=== PATIENT | female | born 1985 | race Caucasian/White ===

== ENCOUNTER → 2017-01-17 | Outpatient (CLI) | payer BC, OTHER | LOC: MW.CHOBGYN 15:18 | PROVIDERS: ATTEND Obstetrics & Gynecology | DX: Z34.90 Encounter for supervision of normal pregnancy, unspecified, unspecified trimester (principal) | CPT/HCPCS: 81003 ==

== ENCOUNTER → 2017-02-28 | Outpatient (CLI) | payer BC, OTHER ==
--- NOTE | 2017-03-02 10:21 | US ---
EXAM DATE: 02/28/17 PATIENT'S AGE: 31 Patient: FORD POWELL Facility: [place], [place] Site . Site : 1985 Study: US OB Pelvis [id number] 4:31:45 PM Ordering Physician: Genna Morrissey Final Report: INDICATION: survey. TECHNIQUE: Conventional transabdominal two-dimensional grayscale ultrasound examination. COMPARISON: None. FINDINGS: There is a living fetus with gestational age of 21 weeks by LMP and 20 weeks 5 days by today`s measurements. EDC based on LMP is 07/11/2017. BPD: 4.8 cm, 20 weeks 4 days Head circumference: 18.2 cm, 20 weeks 4 days Abdominal circumference: 16.1 cm, 21 weeks 2 days Femur length: 3.5 cm, 20 weeks 6 days The weight is estimated at 391 grams, the 43rd percentile. The heart rate is measured at 140 beats per minute and the rhythm appears regular. The head and spine are grossly intact. No gross facial abnormality is evident. The upper lip is intact. Four cardiac chambers are demonstrated. The heart and stomach appear to be on the same side. The diaphragm is intact. Two kidneys and a bladder are demonstrated. The cord insertion is normal and 3 cord vessels are noted. Four extremities are demonstrated. The amniotic fluid volume is within normal limits with TACHO of 18 cm. The placenta is posterior with no evidence of previa. The cervical length is normal at 4.4 cm. IMPRESSION: 1. Living fetus with gestational age of 21 weeks by LMP and 20 weeks 5 days by today`s measurements. EDC based on LMP is 07/11/2017. 2. No anomaly evident. Dictated by Jefferson Restrepo MD @ Mar 02 2017 7:46AM (Electronic Signature) Report Signed by Proxy and Original Signed Document filed in the Medical Record. [facility]
== END | disposition home or self-care (01) ==
LOC: MW.US 13:37
PROVIDERS: ATTEND Obstetrics & Gynecology
DX: Z36 Encounter for antenatal screening of mother (principal)
CPT/HCPCS: 76805; 76805-26

== ENCOUNTER → 2017-03-14 | Outpatient (CLI) | payer BC, OTHER | LOC: MW.CHOBGYN 15:12 | PROVIDERS: ATTEND Obstetrics & Gynecology | DX: Z34.90 Encounter for supervision of normal pregnancy, unspecified, unspecified trimester (principal) | CPT/HCPCS: 36415; 81003; 82950 ==

== ENCOUNTER → 2017-03-19 | Outpatient (CLI) | payer BC, OTHER | END | disposition home or self-care (01) | LOC: MW.CHOBGYN 08:07 | PROVIDERS: ATTEND Obstetrics & Gynecology | DX: O99.810 Abnormal glucose complicating pregnancy (principal) | CPT/HCPCS: 36415; 82951 ==

== ENCOUNTER 2017-07-07 06:10 | Inpatient (IN) | payer BC ==
[2017-07-07] MEDS ORDERED: Nalbuphine 10 MG/1 ML Vial IVPUSH PRN (06:19)
[2017-07-07] MEDS ORDERED: Sodium Chloride 0.9% 2.5 ML Syringe FLUSH PRN (06:19)
[2017-07-07] MEDS ORDERED: Misoprostol 200 MCG Tab PO PRN (06:19)
[2017-07-07] MEDS ORDERED: Butorphanol 1 MG/ML SDV IVPUSH PRN (06:19)
[2017-07-07] MEDS ORDERED: Water For Irrigation,Sterile 1,000 ML Container IRR PRN (06:19)
[2017-07-07] MEDS ORDERED: Carboprost Tromethamine 250 MCG/1 ML Amp IM PRN (06:19)
[2017-07-07] MEDS ORDERED: Sodium Chloride 0.9% 10 ML Syringe FLUSH PRN (06:19)
[2017-07-07] MEDS ORDERED: Methylergonovine 0.2 MG/1 ML Amp IM PRN (06:19)
[2017-07-07] MEDS ORDERED: Lidocaine 1% 50 ML MDV INJECT PRN (06:19)
[2017-07-07] MEDS ORDERED: Ampicillin 2 GM in Sodium Chloride 0.9% 100 ML IV ONE (06:21)
[2017-07-07] MEDS ORDERED: Oxytocin/Lactated Ringers 30 UNIT/500 ML BAG IV SCH (06:30)
[2017-07-07] MEDS: Lactated Ringers 1,000 ML IV SCH ×4 (07:04→12:26)
--- NOTE | 2017-07-07 10:35 | PCM.LDHP ---
L&D History of Present Illness - General Date of Service: 07/07/17 Admit Problem/Dx: Patient Status Order with Admit Dx/Problem 07/07/17 06:19 Patient Status [ADT] Routine Admission Diagnosis/Problem Admission Diagnosis/Problem Source of Information: Patient History Limitations: Reports: No Limitations - History of Present Illness Improves with: Reports: None Worsens with: Reports: None Associated Symptoms: Reports: N - Related Data Allergies/Adverse Reactions: Allergies Allergy/AdvReac Type Severity Reaction Status Date / Time No Known Allergies Allergy Verified 08/04/16 12:05 Home Medications: Home Meds Cholecalciferol (Vitamin D3) [Vitamin D3] 2,000 unit PO DAILY 04/19/15 [History] Vitamin B Complex 1 tab PO DAILY 04/19/15 [History] Phytonadione [Vitamin K] 100 mcg PO DAILY 08/04/16 [History] Past Medical History - Past Health History Medical/Surgical History: Denies 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: , 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) Other OB/BYN History: Current demise - Past Surgical History Musculoskeletal Surgical History: Reports: 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) Social & Family History - Family History Family Medical History: Noncontributory - Tobacco Use Smoking Status *Q: Current Every Day Smoker Years of Tobacco use: 13 Packs/Tins Daily: 0.1 Second Hand Smoke Exposure: No - Alcohol Use Days Per Week of Alcohol Use: 2 Number of Drinks Per Day: 2 Total Drinks Per Week: 4 - Recreational Drug Use Recreational Drug Use: No Drug Use in Last 12 Months: No Recreational Drug Type: Reports: Marijuana/Hashish H&P Review of Systems - Review of Systems: Review Of Systems: See Below General: Reports: No Symptoms HEENT: Reports: No Symptoms Pulmonary: Reports: No Symptoms Cardiovascular: Reports: No Symptoms Gastrointestinal: Reports: No Symptoms Genitourinary: Reports: No Symptoms Musculoskeletal: Reports: No Symptoms Skin: Reports: No Symptoms Psychiatric: Reports: No Symptoms Neurological: Reports: No Symptoms Hematologic/Lymphatic: Reports: No Symptoms Immunologic: Reports: No Symptoms L&D Exam - Exam Exam: See Below - Vital Signs Weight: 109.2 kg - OB Specific Fundal Height In cm: 38 Contraction Intensity: Moderate to Strong Movement: Active Heart Tones: Present Presentation: Vertex - Cochran Score Cochran Score Cervix Position: Anterior Cochran Score Consistency: Soft Cochran Score Effacement: >80% Cochran Score Dilation: > 5 cm Cochran Score 's Station: -1 ,0 Cochran Score Total: 12 - Exam General: Alert, Oriented HEENT: PERRLA, Conjunctiva Clear, EACs Clear, EOMI, Hearing Intact, Mucosa Moist & [place], Nares Patent, Normal Nasal Septum, Posterior Pharynx Clear, TMs Clear Neck: Supple, Trachea Midline Lungs: Clear to Auscultation, Normal Respiratory Effort Cardiovascular: Regular Rate, Regular Rhythm GI/Abdominal Exam: Normal Bowel Sounds, Soft, Non-Tender, No Organomegaly, No Distention, No Abnormal Bruit, No Mass, Pelvis Stable Rectal Exam: Normal Exam, Normal Rectal Tone Genitourinary: Normal external exam, Normal bimanual exam, Normal speculum exam Back Exam: Normal Inspection, Full Range of Motion Extremities: Normal Inspection, Normal Range of Motion, Non-Tender, No Pedal Edema, Normal Capillary Refill Skin: Warm, Dry, Intact Neurological: Cranial Nerves Intact, Reflexes Equal Bilateral Psychiatric: Alert, Normal Affect, Normal Mood - Patient Data Lab Results Last 24 hrs: Laboratory Results - last 24 hr 07/07/17 07/07/17 Range/Units 06:33 06:33 WBC 9.27 (4.0-11.0) K/uL RBC 4.24 L (4.30-5.90) M/uL Hgb 13.8 (12.0-16.0) g/dL Hct 38.8 (36.0-46.0) % MCV 91.5 (80.0-98.0) fL MCH 32.5 H (27.0-32.0) pg MCHC 35.6 (31.0-37.0) g/dL RDW Std Deviation 44.3 (28.0-62.0) fl RDW Coeff of Alex 13 (11.0-15.0) % Plt Count 193 (150-400) K/uL MPV 9.40 (7.40-12.00) fL Nucleated RBC % 0.0 /100WBC Nucleated RBCs # 0 K/uL Blood Type A POSITIVE Antibody Screen NEGATIVE Result Diagrams: 07/07/17 06:33 Problem List Initiated/Reviewed/Updated: Yes Orders Last 24hrs: Active Orders 24 hr Category Date Time Status Patient Status [ADT] Routine ADT 07/07/17 06:19 Active Heart Tones [RC] CONTINUOUS Care 07/07/17 06:19 Active Non Stress Test [RC] PER UNIT ROUTINE Care 07/07/17 06:19 Active May Shower [RC] ASDIRECTED Care 07/07/17 06:19 Active Notify Provider [RC] PRN Care 07/07/17 06:19 Active Up ad Ivone [RC] ASDIRECTED Care 07/07/17 06:19 Active Vaginal Exam [RC] PRN Care 07/07/17 06:19 Active Vital Signs [RC] PER UNIT ROUTINE Care 07/07/17 06:19 Active Ampicillin 1 gm Med 07/07/17 10:00 Active Sodium Chloride 0.9% [Normal Saline] 50 ml IV Q4H Butorphanol [Stadol] Med 07/07/17 06:19 Active 1 mg IVPUSH Q1H PRN Carboprost Tromethamine [Hemabate DS] Med 07/07/17 06:19 Active 250 mcg IM ASDIRECTED PRN Lactated Ringers [Ringers, Lactated] 1,000 ml Med 07/07/17 06:30 Active IV ASDIRECTED Lidocaine 1% [Xylocaine 1%] Med 07/07/17 06:19 Active 50 ml INJECT .ONCE PRN Methylergonovine [Methergine] Med 07/07/17 06:19 Active 0.2 mg IM ASDIRECTED PRN Misoprostol [Cytotec] Med 07/07/17 06:19 Active 200 mcg PO .ONCE PRN Nalbuphine [Nubain] Med 07/07/17 06:19 Active 10 mg IVPUSH Q1H PRN Oxytocin/Lactated Ringers [Pitocin in LR 30 Units/500 Med 07/07/17 06:30 Active ML] 30 unit in 500 ml IV TITRATE Sodium Chloride 0.9% [Saline Flush] Med 07/07/17 06:19 Active 10 ml FLUSH ASDIRECTED PRN Sodium Chloride 0.9% [Saline Flush] Med 07/07/17 06:19 Active 2.5 ml FLUSH ASDIRECTED PRN Water For Irrigation,Sterile [Sterile Water for Med 07/07/17 06:19 Active Irrigation] 1,000 ml IRR ASDIRECTED PRN Scalp Electrode [WOMSER] Per Unit Routine Oth 07/07/17 06:19 Ordered Peripheral IV Insertion Adult [OM.PC] Routine Oth 07/07/17 06:19 Ordered Resuscitation Status Routine Resus Stat 07/07/17 06:19 Ordered Medication Orders Butorphanol Tartrate (Stadol) 1 mg IVPUSH Q1H PRN PRN Reason: Pain Carboprost Tromethamine (Hemabate Ds) 250 mcg IM ASDIRECTED PRN PRN Reason: Post Hemorrhage Lactated Ringer's (Ringers, Lactated) 1,000 mls @ 150 mls/hr IV ASDIRECTED PAT Last Admin: 07/07/17 07:04 Dose: 150 mls/hr Oxytocin/Lactated Ringer's (Pitocin In Lr 30 Units/500 Ml) 30 unit in 500 mls @ 500 mls/hr IV TITRATE PAT Stop: 07/07/17 12:00 Ampicillin Sodium 1 gm/ Sodium (Chloride) 50 mls @ 100 mls/hr IV Q4H PAT Lidocaine HCl (Xylocaine 1%) 50 ml INJECT .ONCE PRN PRN Reason: Laceration repair Methylergonovine Maleate (Methergine) 0.2 mg IM ASDIRECTED PRN PRN Reason: Post Hemorrhage Misoprostol (Cytotec) 200 mcg PO .ONCE PRN PRN Reason: Post Hemorrhage Nalbuphine HCl (Nubain) 10 mg IVPUSH Q1H PRN PRN Reason: Pain (severe 7-10) Sodium Chloride (Saline Flush) 10 ml FLUSH ASDIRECTED PRN PRN Reason: Keep Vein Open Sodium Chloride (Saline Flush) 2.5 ml FLUSH ASDIRECTED PRN PRN Reason: Keep Vein Open Sterile Water (Sterile Water For Irrigation) 1,000 ml IRR ASDIRECTED PRN PRN Reason: delivery Assessment/Plan Comment:: IUP 37+4 SROM in active labor.
[2017-07-07] MEDS ORDERED: fentaNYL 100 MCG/2 ML SDV ONE (10:45)
[2017-07-07] MEDS: Ampicillin 1 GM in Sodium Chloride 0.9% 50 ML IV SCH ×2 (11:12→15:25)
--- NOTE | 2017-07-07 13:26 | PCM.PREANE ---
Preanesthetic Assessment - Anesthesia/Transfusion/Family Hx Anesthesia History: No Prior Anesthesia Other Type of Anesthesia Reaction Comment: No prior anethesia, positive for Motion sickness, Denies any known fmly=prb Family History of Anesthesia Reaction: No Intubation History: Unknown - Review of Systems General: No Symptoms Pulmonary: No Symptoms Cardiovascular: No Symptoms Gastrointestinal: No Symptoms Neurological: No Symptoms Other: Reports: None - Physical Assessment Height: 1.68 m Weight: 109.2 kg ASA Class: 2 Mental Status: Alert & Oriented x3 Airway Class: Mallampati = 2 Dentition: Reports: Normal Dentition Thyro-Mental Finger Breadths: 3 Mouth Opening Finger Breadths: 3 ROM/Head Extension: Full Lungs: Clear to Auscultation, Normal Respiratory Effort Cardiovascular: Regular Rate, Regular Rhythm - Lab Values: Laboratory Last Values WBC 9.27 K/uL (4.0-11.0) 07/07/17 06:33 RBC 4.24 M/uL (4.30-5.90) L 07/07/17 06:33 Hgb 13.8 g/dL (12.0-16.0) 07/07/17 06:33 Hct 38.8 % (36.0-46.0) 07/07/17 06:33 MCV 91.5 fL (80.0-98.0) 07/07/17 06:33 MCH 32.5 pg (27.0-32.0) H 07/07/17 06:33 MCHC 35.6 g/dL (31.0-37.0) 07/07/17 06:33 RDW Std Deviation 44.3 fl (28.0-62.0) 07/07/17 06:33 RDW Coeff of Alex 13 % (11.0-15.0) 07/07/17 06:33 Plt Count 193 K/uL (150-400) 07/07/17 06:33 MPV 9.40 fL (7.40-12.00) 07/07/17 06:33 Nucleated RBC % 0.0 /100WBC 07/07/17 06:33 Nucleated RBCs # 0 K/uL 07/07/17 06:33 Blood Type A POSITIVE 07/07/17 06:33 Antibody Screen NEGATIVE 07/07/17 06:33 - Allergies Allergies/Adverse Reactions: Allergies Allergy/AdvReac Type Severity Reaction Status Date / Time No Known Allergies Allergy Verified 08/04/16 12:05 - Blood Blood Available: No - Anesthesia Plan Pre-Op Medication Ordered: None - Acknowledgements Anesthesia Type Planned: Epidural Pt an Appropriate Candidate for the Planned Anesthesia: Yes Alternatives and Risks of Anesthesia Discussed w Pt/Guardian: Yes Pt/Guardian Understands and Agrees with Anesthesia Plan: Yes PreAnesthesia Questionnaire - Past Health History Medical/Surgical History: Denies 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: , 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) Other OB/BYN History: Current demise - Past Surgical History Musculoskeletal Surgical History: Reports: 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) - SUBSTANCE USE Smoking Status *Q: Current Every Day Smoker Tobacco Use Within Last Twelve Months: No Second Hand Smoke Exposure: No Days Per Week of Alcohol Use: 2 Number of Drinks Per Day: 2 Total Drinks Per Week: 4 Recreational Drug Use History: No Recreational Drug Type: Reports: Marijuana/Hashish - HOME MEDS Home Medications: Home Meds Cholecalciferol (Vitamin D3) [Vitamin D3] 2,000 unit PO DAILY 04/19/15 [History] Vitamin B Complex 1 tab PO DAILY 04/19/15 [History] Phytonadione [Vitamin K] 100 mcg PO DAILY 08/04/16 [History] - CURRENT (IN HOUSE) MEDS Current Meds: Current Medications Butorphanol Tartrate (Stadol) 1 mg IVPUSH Q1H PRN PRN Reason: Pain Carboprost Tromethamine (Hemabate Ds) 250 mcg IM ASDIRECTED PRN PRN Reason: Post Hemorrhage Lactated Ringer's (Ringers, Lactated) 1,000 mls @ 150 mls/hr IV ASDIRECTED [facility] Last Admin: 07/07/17 12:26 Dose: 150 mls/hr Ampicillin Sodium 1 gm/ Sodium (Chloride) 50 mls @ 100 mls/hr IV Q4H [facility] Last Admin: 07/07/17 11:12 Dose: 100 mls/hr Lidocaine HCl (Xylocaine 1%) 50 ml INJECT .ONCE PRN PRN Reason: Laceration repair Methylergonovine Maleate (Methergine) 0.2 mg IM ASDIRECTED PRN PRN Reason: Post Hemorrhage Misoprostol (Cytotec) 200 mcg PO .ONCE PRN PRN Reason: Post Hemorrhage Nalbuphine HCl (Nubain) 10 mg IVPUSH Q1H PRN PRN Reason: Pain (severe 7-10) Sodium Chloride (Saline Flush) 10 ml FLUSH ASDIRECTED PRN PRN Reason: Keep Vein Open Sodium Chloride (Saline Flush) 2.5 ml FLUSH ASDIRECTED PRN PRN Reason: Keep Vein Open Sterile Water (Sterile Water For Irrigation) 1,000 ml IRR ASDIRECTED PRN PRN Reason: delivery Discontinued Medications Fentanyl (Sublimaze) Confirm Administered Dose 100 mcg .ROUTE .STK-MED ONE Stop: 07/07/17 10:46 Ampicillin Sodium 2 gm/ Sodium (Chloride) 100 mls @ 200 mls/hr IV ONETIME ONE Stop: 07/07/17 06:50 Last Admin: 07/07/17 07:04 Dose: 200 mls/hr Oxytocin/Lactated Ringer's (Pitocin In Lr 30 Units/500 Ml) 30 unit in 500 mls @ 500 mls/hr IV TITRATE PAT Stop: 07/07/17 12:00 Ropivacaine/Fentanyl/NS (Fentanyl 2 Mcg-Ropiv 0.2%-Ns) Confirm Administered Dose 100 mls @ as directed .ROUTE .STK-MED ONE Stop: 07/07/17 10:46
[2017-07-07] MEDS ORDERED: Ondansetron 4 MG/2 ML SDV IVPUSH ONE (14:39)
[2017-07-07] MEDS ORDERED: Oxytocin/Lactated Ringers 30 UNIT/500 ML BAG ONE (16:24)
[2017-07-07] MEDS ORDERED: Benzocaine/Menthol 20%-0.5% Spray 78 GM Cannister TOP PRN (16:44)
[2017-07-07] MEDS ORDERED: Acetaminophen 500 MG Tab PO PRN ×2 (16:44)
[2017-07-07] MEDS ORDERED: Ibuprofen 800 MG Tab PO PRN (16:44)
[2017-07-07] MEDS ORDERED: oxyCODONE 5 MG Tab PO PRN (16:44)
[2017-07-07] MEDS ORDERED: Lanolin 100% Cream 7 GM Tube TOP PRN (16:44)
[2017-07-07] MEDS ORDERED: Witch Hazel Medicated Pads 40/Jar TOP PRN (16:44)
[2017-07-07] MEDS ORDERED: Docusate Sodium 100 MG Cap PO PRN (16:44)
[2017-07-07] MEDS ORDERED: Ibuprofen 400 MG Tab PO PRN (16:44)
[2017-07-07] MEDS ORDERED: Bisacodyl 10 MG Supp RECTAL PRN (16:44)
--- NOTE | 2017-07-07 23:16 | OR ---
SURGEON: Ghanshyam Vail MD DATE OF PROCEDURE: Ms. Burks is 31. She is para 2-0-0-1. Her first ended demise. She is 38 weeks. She is followed in our office. She is admitted early in this day with spontaneous start of labor and spontaneous rupture of the membrane. She started on appropriate antibiotics. At the time of admission, she was 4 to 5, heart rate was category 1. She was 0 station to -1. She was 80% effaced. The patient had epidural anesthesia for labor analgesia. The patient progressed in to labor to complete-complete and was able to accomplish normal spontaneous vaginal delivery of a male fetus. score is not available to me at this time and the placenta delivered spontaneous, complete, and intact. The perineum was intact. There was no laceration and there was no perineal or labial laceration. ESTIMATED BLOOD LOSS: 300 mL. COMPLICATIONS: No complication in . heart rate was category 1 through the entire process of labor. ANITA / ABIGAIL /[id number]
[2017-07-08] MEDS: Ampicillin 1 GM in Sodium Chloride 0.9% 50 ML IV SCH ×2 (10:04→10:05)
--- NOTE | 2017-07-08 10:51 | PCM.PNPP ---
- General Info Date of Service: 07/08/17 Functional Status: Reports: Pain Controlled - Review of Systems General: Reports: No Symptoms HEENT: Reports: No Symptoms Pulmonary: Reports: No Symptoms Cardiovascular: Reports: No Symptoms Gastrointestinal: Reports: No Symptoms Genitourinary: Reports: No Symptoms Musculoskeletal: Reports: No Symptoms Skin: Reports: No Symptoms Neurological: Reports: No Symptoms Psychiatric: Reports: No Symptoms - General Info Date of Service: 07/08/17 - Patient Data Vital Signs - Most Recent: Last Vital Signs Temp 36.0 C 07/08/17 04:45 Pulse 88 07/08/17 04:45 Resp 16 07/08/17 04:45 BP 129/86 07/08/17 04:45 Pulse Ox 98 07/08/17 04:45 Weight - Most Recent: 109.2 kg Lab Results - Last 24 Hours: Laboratory Results - last 24 hr 07/08/17 Range/Units 05:03 Hgb 12.5 (12.0-16.0) g/dL Hct 35.9 L (36.0-46.0) % Med Orders - Current: Current Medications Acetaminophen (Tylenol Extra Strength) 500 mg PO Q4H PRN PRN Reason: Pain Acetaminophen (Tylenol Extra Strength) 1,000 mg PO Q4H PRN PRN Reason: Pain Benzocaine/Menthol (Dermoplast Pain Relief 20%-0.5% [place]) 78 gm TOP ASDIRECTED PRN PRN Reason: Perineal Comfort Measure Bisacodyl (Dulcolax) 10 mg RECTAL .ONCE PRN PRN Reason: Constipation Butorphanol Tartrate (Stadol) 1 mg IVPUSH Q1H PRN PRN Reason: Pain Carboprost Tromethamine (Hemabate Ds) 250 mcg IM ASDIRECTED PRN PRN Reason: Post Hemorrhage Docusate Sodium (Colace) 100 mg PO BID PRN PRN Reason: Constipation Emollient Ointment (Lansinoh Hpa) 0 gm TOP ASDIRECTED PRN PRN Reason: Sore Nipples Lactated Ringer's (Ringers, Lactated) 1,000 mls @ 150 mls/hr IV ASDIRECTED PAT Last Admin: 07/07/17 12:26 Dose: 150 mls/hr Ibuprofen (Motrin) 400 mg PO Q4H PRN PRN Reason: Pain Ibuprofen (Motrin) 800 mg PO Q6H PRN PRN Reason: Pain Last Admin: 07/08/17 09:32 Dose: 800 mg Lidocaine HCl (Xylocaine 1%) 50 ml INJECT .ONCE PRN PRN Reason: Laceration repair Methylergonovine Maleate (Methergine) 0.2 mg IM ASDIRECTED PRN PRN Reason: Post Hemorrhage Misoprostol (Cytotec) 200 mcg PO .ONCE PRN PRN Reason: Post Hemorrhage Nalbuphine HCl (Nubain) 10 mg IVPUSH Q1H PRN PRN Reason: Pain (severe 7-10) Oxycodone HCl (Oxycodone) 5 mg PO Q2H PRN PRN Reason: Pain Sodium Chloride (Saline Flush) 10 ml FLUSH ASDIRECTED PRN PRN Reason: Keep Vein Open Sodium Chloride (Saline Flush) 2.5 ml FLUSH ASDIRECTED PRN PRN Reason: Keep Vein Open Sterile Water (Sterile Water For Irrigation) 1,000 ml IRR ASDIRECTED PRN PRN Reason: delivery Witch She (Tucks) 1 pad TOP ASDIRECTED PRN PRN Reason: comfort care Discontinued Medications Fentanyl (Sublimaze) Confirm Administered Dose 100 mcg .ROUTE .STK-MED ONE Stop: 07/07/17 10:46 Last Admin: 07/07/17 14:17 Dose: Not Given Ampicillin Sodium 2 gm/ Sodium (Chloride) 100 mls @ 200 mls/hr IV ONETIME ONE Stop: 07/07/17 06:50 Last Admin: 07/07/17 07:04 Dose: 200 mls/hr Oxytocin/Lactated Ringer's (Pitocin In Lr 30 Units/500 Ml) 30 unit in 500 mls @ 500 mls/hr IV TITRATE [facility] Stop: 07/07/17 12:00 Last Admin: 07/07/17 16:38 Dose: 500 mls/hr Ampicillin Sodium 1 gm/ Sodium (Chloride) 50 mls @ 100 mls/hr IV Q4H [facility] Last Admin: 07/08/17 10:05 Dose: Not Given Ropivacaine/Fentanyl/NS (Fentanyl 2 Mcg-Ropiv 0.2%-Ns) Confirm Administered Dose 100 mls @ as directed .ROUTE .STK-MED ONE Stop: 07/07/17 10:46 Last Admin: 07/07/17 14:17 Dose: Not Given Oxytocin/Lactated Ringer's (Pitocin In Lr 30 Units/500 Ml) Confirm Administered Dose 30 unit in 500 mls @ as directed .ROUTE .STK-MED ONE Stop: 07/07/17 16:25 Last Admin: 07/08/17 09:50 Dose: Not Given Ondansetron HCl (Zofran) 4 mg IVPUSH ONETIME ONE Stop: 07/07/17 14:40 Last Admin: 07/07/17 15:26 Dose: 4 mg - Interaction Disposition, : [place] to Nursery Interaction: Holding Infant, To Nursery to Visit Infant Feeding: Attempted ; Nursed Fair/Poor Support Person: - Recovery Exam Fundal Tone: Firm Fundal Level: 1 Fingerbreadths Below Umbilicus Fundal Placement: Midline Lochia Amount: Small Lochia Color: Rubra/Red Perineum Description: Intact, Minimal Bruising/Swelling Episiotomy/Laceration: None Bladder Status: Voiding Urinary Elimination: Voided - Exam General: Alert, Oriented HEENT: Pupils Equal Neck: Supple Lungs: Clear to Auscultation, Normal Respiratory Effort Cardiovascular: Regular Rate, Regular Rhythm GI/Abdominal Exam: Normal Bowel Sounds, Soft, Non-Tender, No Organomegaly, No Distention, No Abnormal Bruit, No Mass, Pelvis Stable Extremities: Normal Inspection, Normal Range of Motion, Non-Tender, No Pedal Edema, Normal Capillary Refill Skin: Warm, Dry, Intact Wound/Incisions: Healing Well Neurological: No New Focal Deficit Psy/Mental Status: Alert, Normal Affect, Normal Mood - Problem List Review Problem List Initiated/Reviewed/Updated: Yes - My Orders Last 24 Hours: My Active Orders 07/07/17 16:44 Patient Status [ADT] Routine May Shower [RC] ASDIRECTED Up ad Ivone [RC] ASDIRECTED Acetaminophen [Tylenol Extra Strength] 1,000 mg PO Q4H PRN Acetaminophen [Tylenol Extra Strength] 500 mg PO Q4H PRN Benzocaine/Menthol [Dermoplast Pain Relief 20%-0.5% [place]] 78 gm TOP ASDIRECTED PRN Bisacodyl [Dulcolax] 10 mg RECTAL .ONCE PRN Docusate Sodium [Colace] 100 mg PO BID PRN Ibuprofen [Motrin] 400 mg PO Q4H PRN Ibuprofen [Motrin] 800 mg PO Q6H PRN Lanolin [Lansinoh HPA] See Dose Instructions TOP ASDIRECTED PRN Witch She [Tucks] 1 pad TOP ASDIRECTED PRN oxyCODONE 5 mg PO Q2H PRN Assess Lochia [WOMSER] Per Unit Routine Assess Uterine Involution [WOMSER] Per Unit Routine Peripheral IV Discontinue [OM.PC] Routine - Plan Plan:: IUP 37+4 SROM in active labor.
[2017-07-08 17:52] VITALS: BP 131/84
== END 2017-07-08 16:35 | disposition home or self-care (01) | DRG 560 ==
LOC: MW.OBCHECK 06:10 → MW.OB 06:11 → MW.OBCHECK 06:19 → MW.OB 06:19 → OBSVTOIN 16:37
PROVIDERS: ADMIT Obstetrics & Gynecology; ATTEND Obstetrics & Gynecology
PROC: 10E0XZZ Delivery of Products of Conception, External Approach (ICD-10-PCS; principal; 2017-07-07)
DX: O42.02 Full-term premature rupture of membranes, onset of labor within 24 hours of rupture (principal); Z3A.38 38 weeks gestation of pregnancy; Z37.0 Single live birth
CPT/HCPCS: 36415; 59025; 85014; 85018; 85027; 86850; 86900; 86901; A9270-GY; J0290; J2405; J3010; J7030; J7050; J7120

== ENCOUNTER 2017-10-16 06:23 | Day surgery (SDC) | payer BC ==
[~2017-10-16 06:23] MED LIST: Lactated Ringers 1,000 ML IV SCH; ceFAZolin 2 GM in Premix Bag 1 BAG IV ONE
[2017-10-16] MEDS ORDERED: Midazolam 1 MG/ML 2 ML SDV ONE (07:19)
[2017-10-16] MEDS ORDERED: fentaNYL 100 MCG/2 ML SDV ONE ×2 (07:19→08:47)
[2017-10-16] MEDS ORDERED: Propofol 200 MG/20 ML SDV ONE (07:19)
[2017-10-16] MEDS ORDERED: Ketorolac 30 MG/ML SDV ONE (07:21)
[2017-10-16] MEDS ORDERED: diphenhydrAMINE 50 MG/ML SDV ONE (07:21)
[2017-10-16] MEDS ORDERED: Ondansetron 4 MG/2 ML SDV ONE (07:21)
[2017-10-16] MEDS ORDERED: Bupivacaine 25%/EPINEPHrine/PF 30 ML ONE (07:43)
[2017-10-16] MEDS ORDERED: ceFAZolin 1 GM Vial ONE (07:45)
[2017-10-16] MEDS ORDERED: Octyl 2-Cyanoacrylate 1 Tube ONE (07:46)
--- NOTE | 2017-10-16 07:51 | PCM.PREANE ---
Preanesthetic Assessment - Anesthesia/Transfusion/Family Hx Anesthesia History: Prior Anesthesia Without Reaction Other Type of Anesthesia Reaction Comment: No prior anethesia, positive for Motion sickness, Denies any known fmly=prb Transfusion History: No Prior Transfusion(s) Intubation History: Unknown - Review of Systems General: No Symptoms Pulmonary: No Symptoms Cardiovascular: No Symptoms Gastrointestinal: No Symptoms Neurological: No Symptoms Other: Reports: None - Physical Assessment NPO Status Date: 10/15/17 NPO Status Time: 18:30 O2 Sat by Pulse Oximetry: 97 Respiratory Rate: 16 Vital Signs: Last Vital Signs Temp 36.4 C 10/16/17 06:45 Pulse 68 10/16/17 06:45 Resp 16 10/16/17 06:45 BP 135/76 10/16/17 06:45 Pulse Ox 97 10/16/17 06:45 Height: 1.68 m Weight: 109.769 kg ASA Class: 2 Mental Status: Alert & Oriented x3 Airway Class: Mallampati = 1 Dentition: Reports: Normal Dentition ROM/Head Extension: Full Lungs: Clear to Auscultation, Normal Respiratory Effort Cardiovascular: Regular Rate, Regular Rhythm - Lab Values: Laboratory Last Values Urine HCG, Qual NEGATIVE (NEGATIVE) 10/16/17 06:30 - Allergies Allergies/Adverse Reactions: Allergies Allergy/AdvReac Type Severity Reaction Status Date / Time No Known Allergies Allergy Verified 08/04/16 12:05 - Blood Blood Available: Yes - Anesthesia Plan Pre-Op Medication Ordered: None - Acknowledgements Anesthesia Type Planned: General Anesthesia Pt an Appropriate Candidate for the Planned Anesthesia: Yes Alternatives and Risks of Anesthesia Discussed w Pt/Guardian: Yes Pt/Guardian Understands and Agrees with Anesthesia Plan: Yes PreAnesthesia Questionnaire - Past Health History Medical/Surgical History: Denies Medical/Surgical History Gastrointestinal History: Reports: None Other Gastrointestinal History: biliary dyskinesia Genitourinary History: Reports: None 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: , 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) Musculoskeletal History: Reports: None Psychiatric History: Reports: Anxiety Endocrine/Metabolic History: Reports: Obesity/BMI 30+ - Past Surgical History Head Surgeries/Procedures: Reports: None HEENT Surgical History: Reports: Oral Surgery Other HEENT Surgeries/Procedures: wisdom teeth removed GI Surgical History: Reports: Cholecystectomy Musculoskeletal Surgical History: Reports: 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) Other Musculoskeletal Surgeries/Procedures:: Right patella tendon tear - SUBSTANCE USE Smoking Status *Q: Former Smoker Tobacco Use Within Last Twelve Months:  Second Hand Smoke Exposure: No Days Per Week of Alcohol Use: 2 Number of Drinks Per Day: 2 Total Drinks Per Week: 4 Recreational Drug Use History: No Recreational Drug Type: Reports: Marijuana/Hashish - HOME MEDS Home Medications: Home Meds Cholecalciferol (Vitamin D3) [Vitamin D3] 10,000 unit PO DAILY 04/19/15 [History ] Vitamin B Complex 1 tab PO DAILY 04/19/15 [History] Bromelains 500 mg PO DAILY 10/11/17 [History] Lactobacillus Acidophilus [Probiotic] 1 tab PO DAILY 10/11/17 [History] Magnesium Citrate 1 tab PO ASDIRECTED 10/11/17 [History] PNV95/Ferrous Fumarate/FA [ Vitamins Tablet] 1 tab PO DAILY 10/11/17 [ History] hydrOXYzine HCl [Atarax] 1 - 2 tab PO ASDIRECTED PRN 10/11/17 [History] - CURRENT (IN HOUSE) MEDS Current Meds: Current Medications Lactated Ringer's (Ringers, Lactated) 1,000 mls @ 125 mls/hr IV ASDIRECTED PAT Last Admin: 10/16/17 06:48 Dose: 125 mls/hr Discontinued Medications Cefazolin Sodium (Ancef) Confirm Administered Dose 2 gm .ROUTE .STK-MED ONE Stop: 10/16/17 07:46 Diphenhydramine HCl (Benadryl) Confirm Administered Dose 50 mg .ROUTE .STK-MED ONE Stop: 10/16/17 07:22 Fentanyl (Sublimaze) Confirm Administered Dose 100 mcg .ROUTE .STK-MED ONE Stop: 10/16/17 07:20 Cefazolin Sodium/Dextrose 2 gm (/ Premix) 50 mls @ 100 mls/hr IV ONETIME ONE Stop: 10/16/17 05:29 Bupivacaine HCl/Epinephrine Bitart (Sensorc Mpf 0.25%-Epi [id number]) Confirm Administered Dose 30 mls @ as directed .ROUTE .STK-MED ONE Stop: 10/16/17 07:44 Ketorolac Tromethamine (Toradol) Confirm Administered Dose 30 mg .ROUTE .STK- MED ONE Stop: 10/16/17 07:22 Midazolam HCl (Versed 1 Mg/Ml) Confirm Administered Dose 2 mg .ROUTE .STK-MED ONE Stop: 10/16/17 07:20 Octyl Cyanoacrylate (Dermabond Advance) Confirm Administered Dose 1 applic .ROUTE .STK-MED ONE Stop: 10/16/17 07:47 Ondansetron HCl (Zofran) Confirm Administered Dose 4 mg .ROUTE .STK-MED ONE Stop: 10/16/17 07:22 Propofol (Diprivan 20 Ml) Confirm Administered Dose 200 mg .ROUTE .STK-MED ONE Stop: 10/16/17 07:20
[2017-10-16] MEDS ORDERED: ePHEDrine 50 MG/ML SDV ONE (08:21)
[2017-10-16] MEDS: fentaNYL 100 MCG/2 ML SDV IVPUSH PRN ×3 (09:22→09:49)
--- NOTE | 2017-10-16 09:26 | PCM.OPNOTE ---
- General Post-Op/Procedure Note Date of Surgery/Procedure: 10/16/17 Operative Procedure(s): 1) incarcerated incisional hernia repair, no mesh used. 2) wound exploration and revision Findings: 1) wound scar explored and revised 2) hernia with incarcerated omentum, and fascia defect of 10 mm; primary repair without mesh. [id number] Pre Op Diagnosis: incarcerated incisional hernia Post-Op Diagnosis: Same Anesthesia Technique: General ET Tube Primary Surgeon: Jona Ybarra Pathology: hernia sac Complications: None Condition: Good
[2017-10-16] MEDS ORDERED: Acetaminophen/oxyCODONE 325-10 MG Tab PO ONE (09:27)
--- NOTE | 2017-10-16 09:58 | PCM.POSTAN ---
POST ANESTHESIA ASSESSMENT - MENTAL STATUS Mental Status: Alert, Oriented - RESPIRATORY Respiratory Status: Respiratory Rate WNL, Airway Patent, O2 Saturation Stable - CARDIOVASCULAR CV Status: Pulse Rate WNL, Blood Pressure Stable - GASTROINTESTINAL GI Status: No Symptoms - POST OP HYDRATION Hydration Status: Adequate & Stable
--- NOTE | 2017-10-16 10:00 | OR ---
SURGEON: Jona Ybarra MD DATE OF PROCEDURE: 10/16/2017 PREOPERATIVE DIAGNOSIS: Incarcerated incisional hernia at the umbilicus. POSTOPERATIVE DIAGNOSIS: Incarcerated incisional hernia at the umbilicus. PROCEDURES PERFORMED: 1. Wound exploration and revision. 2. Hernia repair, primary without using mesh. COMPLICATIONS: None. FINDINGS: 1. Wound scar explored and revised its hypertrophy. 2. Hernia with incarcerated omentum and fascial defect of 10 mm, primary repair without using mesh. PROCEDURE IN DETAIL: The patient was taken to the operating room and placed in a supine position. Upon general endotracheal anesthesia, the patient's abdomen was prepped and draped in a sterile fashion. Time-out has been called. The patient was identified, procedure was identified, antibiotic was given, and procedure was then started. Ioban was applied prophylactically. Using a skin scalpel previous incision which was right above the umbilicus and the scar formation over there was pretty hypertrophy and caused pain. On exploration, there was no foreign body or infection. The scar was revised and removed from the field. The incision was carried deep down the scar around the umbilicus and found the hernia sac with incarcerated omentum upon open up and the omentum pushed back to the abdominal cavity, and the hernia sac was excised and sent for pathology. Fascial defect was measured 10 mm, decided closed primary without using mesh and using 1-0 Ethibond simple interrupted stitch was placed and upon finish the umbilicus was tied down with 2-0 Vicryl to recreate the umbilicus and followed with 4-0 Monocryl to approximate the skin. Every layer closed was followed with irrigation and followed with appropriate dressing. The patient was awakened, extubated, and transferred to recovery in hemodynamically stable condition. The patient tolerated the procedure well. There were no intraoperative complications. Dr. Ybarra was present throughout the whole procedure. As always, thank you for the kind referral. PRIMARY SURGEON: SECONDARY SURGEON: ENGLISH AND READING INSTRUCTOR: REASON ENGLISH AND READING INSTRUCTOR WAS NECESSARY: ROLE OF ENGLISH AND READING INSTRUCTOR: SEN / ABIGAIL /[id number]
--- NOTE | 2017-10-16 11:47 | PCM48HPAN ---
Post Anesthesia Note - EVALUATION WITHIN 48HRS OF ANESTHETIC Vital Signs in Normal Range: Yes Patient Participated in Evaluation: Yes Respiratory Function Stable: Yes Airway Patent: Yes Cardiovascular Function Stable: Yes Hydration Status Stable: Yes Pain Control Satisfactory: Yes Nausea and Vomiting Control Satisfactory: Yes Mental Status Recovered: Yes
[2017-10-16 12:53] VITALS: BP 120/73
== END 2017-10-16 12:25 | disposition home or self-care (01) ==
LOC: MW.SDS 06:23
PROVIDERS: ATTEND Surgery
DX: K43.0 Incisional hernia with obstruction, without gangrene (principal); F41.9 Anxiety disorder, unspecified; E66.9 Obesity, unspecified; Z68.39 Body mass index [BMI] 39.0-39.9, adult; Z87.891 Personal history of nicotine dependence; Z80.0 Family history of malignant neoplasm of digestive organs; Z79.899 Other long term (current) drug therapy; Z98.890 Other specified postprocedural states
CPT/HCPCS: 49561; 81025; A9270; J0690; J1200; J1885; J2250; J2405; J3010; J7120; 00830; 88304; J2704

== ENCOUNTER 2017-10-20 16:22 | Inpatient (IN) | payer BC ==
[2017-10-20] MEDS ORDERED: Ondansetron 4 MG/2 ML SDV IVPUSH ONE (17:01)
[2017-10-20] MEDS ORDERED: Sodium Chloride 0.9% 2.5 ML Syringe FLUSH PRN (17:01)
[2017-10-20] MEDS ORDERED: Sodium Chloride 0.9% 10 ML Syringe FLUSH PRN (17:01)
--- NOTE | 2017-10-20 17:02 | EDM.PDOC ---
<Nicolette Davenport - Last Filed: 10/20/17 19:07> ED HPI GENERAL MEDICAL PROBLEM - General Chief Complaint: Wound Recheck Stated Complaint: DRAINAGE AT INCISION SITE Time Seen by Provider: 10/20/17 16:31 Source of Information: Reports: Patient History Limitations: Reports: No Limitations - History of Present Illness INITIAL COMMENTS - FREE TEXT/NARRATIVE: History of present illness: []Patient is 4 days status post herniorrhaphy by Dr. Ybarra and noted redness and malodorous pus draining from her wound today. She spiked a fever 101 at home and has been very nauseated. Review of systems: As per history of present illness and below otherwise all systems reviewed and negative. Past medical history: As per history of present illness and as reviewed below otherwise noncontributory. Surgical history: As per history of present illness and as reviewed below otherwise noncontributory. Social history: No reported history of drug or alcohol abuse. Family history: As per history of present illness and as reviewed below otherwise noncontributory. Physical exam: General: Well developed, well nourished in NAD HEENT: Atraumatic, normocephalic, pupils reactive, negative for conjunctival pallor or scleral icterus, mucous membranes moist, throat clear, neck supple, nontender, trachea midline. Lungs: Clear to auscultation, breath sounds equal bilaterally, chest nontender. Heart: S1S2, regular, negative for clicks, rubs, or JVD. Abdomen: Low transverse incision with purulent drainage and surrounding erythema. Abdomen is soft with tenderness no rebound or guarding. Negative for masses or hepatosplenomegaly. Negative for costovertebral tenderness. Pelvis: Stable nontender. Genitourinary: Deferred. Rectal: Deferred. Extremities: Atraumatic, negative for cords or calf pain. Neurovascular unremarkable. Neuro: Awake, alert, oriented. Cranial nerves II through XII unremarkable. Cerebellum unremarkable. Motor and sensory unremarkable throughout. Exam nonfocal. Diagnostics: []Labs CT abdomen and pelvis pending Dr. Simpson to check and disposition patient Therapeutics: []Blood cultures, Rocephin, pain meds given in the ED Impression: []Postoperative wound infection Plan: []Follow-up with Dr. Ybarra, Definitive disposition and diagnosis as appropriate pending reevaluation and review of above. abdomen Pain Score (Numeric/FACES): 8 - Related Data Allergies Allergy/AdvReac Type Severity Reaction Status Date / Time No Known Allergies Allergy Verified 10/20/17 17:00 Home Meds: Home Meds Cholecalciferol (Vitamin D3) [Vitamin D3] 10,000 unit PO DAILY 04/19/15 [History ] Vitamin B Complex 1 tab PO DAILY 04/19/15 [History] Bromelains 500 mg PO DAILY 10/11/17 [History] Lactobacillus Acidophilus [Probiotic] 1 tab PO DAILY 10/11/17 [History] Magnesium Citrate 1 tab PO ASDIRECTED 10/11/17 [History] PNV95/Ferrous Fumarate/FA [ Vitamins Tablet] 1 tab PO DAILY 10/11/17 [ History] hydrOXYzine HCl [Atarax] 1 - 2 tab PO ASDIRECTED PRN 10/11/17 [History] Acetaminophen/HYDROcodone [[place] 325-5 MG] 1 tab PO Q3H 10/20/17 [History] Cephalexin [Keflex] 500 mg PO Q6HR #40 cap 10/20/17 [Rx] Fenugreek Seed/Bl.thistle/Anis [Milkflow Capsule] 340 mg PO DAILY 10/20/17 [ History] Past Medical History - Past Health History Medical/Surgical History: Denies Medical/Surgical History Gastrointestinal History: Reports: None Other Gastrointestinal History: biliary dyskinesia Genitourinary History: Reports: None 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: , 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) Musculoskeletal History: Reports: None Psychiatric History: Reports: Anxiety Endocrine/Metabolic History: Reports: Obesity/BMI 30+ - Past Surgical History Head Surgeries/Procedures: Reports: None HEENT Surgical History: Reports: Oral Surgery Other HEENT Surgeries/Procedures: wisdom teeth removed GI Surgical History: Reports: Cholecystectomy Musculoskeletal Surgical History: Reports: 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) Other Musculoskeletal Surgeries/Procedures:: Right patella tendon tear Social & Family History - Family History Family Medical History: Noncontributory Respiratory: Reports: Asthma OBGYN: Reports: Oncologic: Reports: Breast, Cervix, Colon, Lung - Tobacco Use Smoking Status *Q: Former Smoker Years of Tobacco use: 13 Packs/Tins Daily: 0.1 Used Tobacco, but Quit: Yes Month Tobacco Last Used: quit smoking 1 yr ago Second Hand Smoke Exposure: No - Alcohol Use Days Per Week of Alcohol Use: 2 Number of Drinks Per Day: 2 Total Drinks Per Week: 4 - Recreational Drug Use Recreational Drug Use: No Drug Use in Last 12 Months: No Recreational Drug Type: Reports: Marijuana/Hashish ED ROS GENERAL - Review of Systems Review Of Systems: See Below (See history of present illness) ED EXAM, SKIN/RASH Exam: See Below (See history of present illness) Course - Vital Signs Last Recorded V/S: Last Vital Signs Temp 37.5 C 10/20/17 19:35 Pulse 82 10/20/17 17:00 Resp 18 10/20/17 17:00 BP 135/82 10/20/17 17:00 Pulse Ox 98 10/20/17 17:00 - Orders/Labs/Meds Orders: Active Orders 24 hr Category Date Time Status Patient Status [ADT] Stat ADT 10/20/17 19:34 Ordered Abdomen Pelvis w Cont [CT] Stat Exams 10/20/17 17:06 Taken CULTURE BLOOD [BC] Stat Lab 10/20/17 17:10 Received CULTURE BLOOD [BC] Stat Lab 10/20/17 17:18 Received CULTURE WOUND [RM] Stat Lab 10/20/17 17:08 Ordered LACTATE WITH REFLEX [BG] Stat Lab 10/20/17 19:33 Ordered HYDROmorphone [Dilaudid] Med 10/20/17 17:01 Active 0.5 mg IVPUSH Q1H PRN Sodium Chloride 0.9% [Saline Flush] Med 10/20/17 17:01 Active 10 ml FLUSH ASDIRECTED PRN Sodium Chloride 0.9% [Saline Flush] Med 10/20/17 17:01 Active 2.5 ml FLUSH ASDIRECTED PRN Blood Culture x2 Reflex Set [OM.PC] Stat Oth 10/20/17 17:00 Ordered Saline Lock Insert [OM.PC] Stat Oth 10/20/17 16:59 Ordered Medication Orders Hydromorphone HCl (Dilaudid) 0.5 mg IVPUSH Q1H PRN PRN Reason: Pain Last Admin: 10/20/17 18:01 Dose: 0.5 mg Sodium Chloride (Saline Flush) 10 ml FLUSH ASDIRECTED PRN PRN Reason: Keep Vein Open Sodium Chloride (Saline Flush) 2.5 ml FLUSH ASDIRECTED PRN PRN Reason: Keep Vein Open Labs: Laboratory Tests 10/20/17 10/20/17 Range/Units 17:10 17:10 WBC 8.96 (4.0-11.0) K/uL RBC 4.53 (4.30-5.90) M/uL Hgb 13.9 (12.0-16.0) g/dL Hct 39.9 (36.0-46.0) % MCV 88.1 (80.0-98.0) fL MCH 30.7 (27.0-32.0) pg MCHC 34.8 (31.0-37.0) g/dL RDW Std Deviation 38.1 (28.0-62.0) fl RDW Coeff of Alex 12 (11.0-15.0) % Plt Count 229 (150-400) K/uL MPV 8.90 (7.40-12.00) fL Neut % (Auto) 74.1 (48.0-80.0) % Lymph % (Auto) 15.6 L (16.0-40.0) % Wood % (Auto) 8.3 (0.0-15.0) % Eos % (Auto) 1.8 (0.0-7.0) % Baso % (Auto) 0.2 (0.0-1.5) % Neut # (Auto) 6.6 H (1.4-5.7) K/uL Lymph # (Auto) 1.4 (0.6-2.4) K/uL Wood # (Auto) 0.7 (0.0-0.8) K/uL Eos # (Auto) 0.2 (0.0-0.7) K/uL Baso # (Auto) 0.0 (0.0-0.1) K/uL Nucleated RBC % 0.0 /100WBC Nucleated RBCs # 0 K/uL Sodium 137 (136-146) mmol/L Potassium 3.8 (3.5-5.1) mmol/L Chloride 100 (98-110) mmol/L Carbon Dioxide 26 (21-31) mmol/L BUN 12 (6.0-23.0) mg/dL Creatinine 0.8 (0.6-1.5) mg/dL Est Cr Clr Drug Dosing 95.38 mL/min Estimated GFR (MDRD) > 60.0 ml/min Glucose 98 (60-110) mg/dL Calcium 9.6 (8.8-10.8) mg/dL Total Bilirubin 0.6 (0.1-1.5) mg/dL AST 26 (5-40) IU/L ALT 45 (8-54) IU/L Alkaline Phosphatase 76 (40-150) Total Protein 7.5 (6.0-8.0) g/dL Albumin 4.1 (3.5-5.0) g/dL Globulin 3.4 (2.0-3.5) g/dL Albumin/Globulin Ratio 1.2 L (1.3-2.8) Meds: Medications Generic Name Dose Route Start Last Admin Trade Name Freq PRN Reason Stop Dose Admin Hydromorphone HCl 0.5 mg 10/20/17 17:01 10/20/17 18:01 Dilaudid IVPUSH 0.5 mg Q1H PRN Administration Pain Sodium Chloride 10 ml 10/20/17 17:01 Saline Flush FLUSH ASDIRECTED PRN Keep Vein Open Sodium Chloride 2.5 ml 10/20/17 17:01 Saline Flush FLUSH ASDIRECTED PRN Keep Vein Open Discontinued Medications Generic Name Dose Route Start Last Admin Trade Name Freq PRN Reason Stop Dose Admin Sodium Chloride 500 mls @ 999 mls/hr 10/20/17 17:17 10/20/17 18:41 Normal Saline IV 10/20/17 17:47 125 mls/hr .Bolus ONE Infusion Ceftriaxone Sodium/Dextrose 1 50 mls @ 100 mls/hr 10/20/17 17:37 10/20/17 18: 41 gm/ Premix IV 10/20/17 18:06 100 mls/hr ONETIME ONE Administration Iopamidol 100 ml 10/20/17 18:24 10/20/17 18:32 Isovue-370 (76%) IVPUSH 10/20/17 18:25 100 ml ONETIME STA Administration Ondansetron HCl 4 mg 10/20/17 17:01 10/20/17 18:00 Zofran IVPUSH 10/20/17 17:02 4 mg ONETIME ONE Administration Departure - Departure Disposition: Refer to Observation Condition: Good Clinical Impression: Postoperative wound infection Qualifiers: Encounter type: initial encounter Qualified Code(s): T81.4XXA - Infection following a procedure, initial encounter - Discharge Information Prescriptions: Cephalexin [Keflex] 500 mg PO Q6HR #40 cap Referrals: PCP,Unknown [Primary Care Provider] - Forms: ED Department Discharge - My Orders Last 24 Hours: My Active Orders 10/20/17 19:33 LACTATE WITH REFLEX [BG] Stat 10/20/17 19:34 Patient Status [ADT] Stat - Assessment/Plan Last 24 Hours: My Active Orders 10/20/17 19:33 LACTATE WITH REFLEX [BG] Stat 10/20/17 19:34 Patient Status [ADT] Stat <Antonieta Simpson - Last Filed: 10/20/17 19:37> ED HPI GENERAL MEDICAL PROBLEM - History of Present Illness INITIAL COMMENTS - FREE TEXT/NARRATIVE: This Dr. Simpson dictating an addendum note as having assumed care of this case at 1900 hrs. I reviewed all the labs that were performed and discussed with the patient and I also reviewed the CT and findings. I have evaluated the patient personally and feel that this is a very large area of induration and erythema with the drainage and in light of the CT scan findings I would recommend admission. She is currently receiving Rocephin and I discussed the case with Dr. Hinojosa our surgeon on-call at 1930. He accepts the patient for observation admission and will be by to see the patient. He will likely change the patient's antibiotics. I have marked the area of erythema and induration still can be monitored closely and the patient states that she is comfortable with the admission. Impression: Postoperative wound infection with abdominal wall cellulitis and early abscess Plan observation admission for IV antibiotics Departure - Departure Time of Disposition: 19:37 Condition: Good
[2017-10-20] MEDS ORDERED: Sodium Chloride 0.9% 500 ML IV ONE (17:17)
[2017-10-20] MEDS ORDERED: cefTRIAXone 1 GM in Premix Bag 1 BAG IV ONE (17:37)
[2017-10-20 17:48] LABS: CHLORIDE,CL 100 mmol/L (98-110); SODIUM,NA 137 mmol/L (136-146)
[2017-10-20] MEDS: HYDROmorphone 1 MG/ML Syringe IVPUSH PRN ×2 (18:01→20:46)
[2017-10-20] MEDS ORDERED: Iopamidol 755 Mg/ML 100 ML Bottle IVPUSH STA (18:24)
[2017-10-20] MEDS ORDERED: Dextrose 5%-Ringers 1,000 ML IV SCH (20:30)
--- NOTE | 2017-10-20 20:35 | PCM.HP ---
H&P History of Present Illness - General Date of Service: 10/20/17 Admit Problem/Dx: Admission Diagnosis/Problem Admission Diagnosis/Problem Wound infection following procedure Source of Information: Patient, Family History Limitations: Reports: No Limitations - History of Present Illness Initial Comments - Free Text/Narative: Patient is a 31-year-old female, who underwent repair of a supraumbilical incisional hernia by Dr. Ybarra this past Sunday. She was doing reasonably well until today when she started having increasing pain and redness around the incision. The pain progressed to the point that she sought care in the emergency room. She was seen by both Dr. Davenport and Dr. Simpson. CT scan was obtained and it does reveal a fluid collection at the surgical site with a small amount of air in the subcutaneous which may represent an early abscess versus residual from surgery. Patient did get some relief from Dilaudid given in the emergency room, but her pain is recurring. Of note, she has had a previous laparoscopic cholecystectomy. Onset of Symptoms: Reports: Today Duration of Symptoms: Reports: Hour(s):, Constant, Getting Worse Location: Reports: Abdomen Quality: Reports: Pressure, Throbbing Severity: Moderate Improves with: Reports: Rest Worsens with: Reports: Movement Associated Symptoms: Denies: Fever/Chills, Headaches, Loss of Appetite, Nausea/ Vomiting abdomen Pain Score (Numeric/FACES): 3 - Related Data Allergies/Adverse Reactions: Allergies Allergy/AdvReac Type Severity Reaction Status Date / Time No Known Allergies Allergy Verified 10/20/17 17:00 Home Medications: Home Meds Cholecalciferol (Vitamin D3) [Vitamin D3] 10,000 unit PO DAILY 04/19/15 [History ] Vitamin B Complex 1 tab PO DAILY 04/19/15 [History] Bromelains 500 mg PO DAILY 10/11/17 [History] Lactobacillus Acidophilus [Probiotic] 1 tab PO DAILY 10/11/17 [History] Magnesium Citrate 1 tab PO ASDIRECTED 10/11/17 [History] PNV95/Ferrous Fumarate/FA [ Vitamins Tablet] 1 tab PO DAILY 10/11/17 [ History] hydrOXYzine HCl [Atarax] 1 - 2 tab PO ASDIRECTED PRN 10/11/17 [History] Acetaminophen/HYDROcodone [[place] 325-5 MG] 1 tab PO Q3H 10/20/17 [History] Cephalexin [Keflex] 500 mg PO Q6HR #40 cap 10/20/17 [Rx] Fenugreek Seed/Bl.thistle/Anis [Milkflow Capsule] 340 mg PO DAILY 10/20/17 [ History] Past Medical History - Past Health History Medical/Surgical History: Denies Medical/Surgical History Gastrointestinal History: Reports: None Other Gastrointestinal History: biliary dyskinesia Genitourinary History: Reports: None 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: , 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) Musculoskeletal History: Reports: None Psychiatric History: Reports: Anxiety Endocrine/Metabolic History: Reports: Obesity/BMI 30+ - Past Surgical History Head Surgeries/Procedures: Reports: None HEENT Surgical History: Reports: Oral Surgery Other HEENT Surgeries/Procedures: wisdom teeth removed GI Surgical History: Reports: Cholecystectomy, Hernia, Abdominal Musculoskeletal Surgical History: Reports: 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) Other Musculoskeletal Surgeries/Procedures:: Right patella tendon tear Social & Family History - Family History Family Medical History: Noncontributory Respiratory: Reports: Asthma OBGYN: Reports: Oncologic: Reports: Breast, Cervix, Colon, Lung - Tobacco Use Smoking Status *Q: Former Smoker Years of Tobacco use: 13 Packs/Tins Daily: 0.1 Used Tobacco, but Quit: Yes Month Tobacco Last Used: quit smoking 1 yr ago Second Hand Smoke Exposure: No - Alcohol Use Days Per Week of Alcohol Use: 2 Number of Drinks Per Day: 2 Total Drinks Per Week: 4 - Recreational Drug Use Recreational Drug Use: No Drug Use in Last 12 Months: No Recreational Drug Type: Reports: Marijuana/Hashish H&P Review of Systems - Review of Systems: Review Of Systems: See Below General: Reports: Fever, Decreased Appetite. Denies: Chills, Night Sweats, Diaphoresis HEENT: Reports: No Symptoms Pulmonary: Denies: Shortness of Breath, Wheezing Cardiovascular: Denies: Chest Pain Gastrointestinal: Reports: Abdominal Pain ([place]-incisional), Decreased Appetite , Other (Has had some drainage from the surgical site). Denies: Anorexia, Distension, Flatus, Hematemesis, Hematochezia Genitourinary: Reports: No Symptoms Musculoskeletal: Reports: No Symptoms Skin: Reports: Erythema, Wound Psychiatric: Denies: Confusion, Depression, Mood Lability, Anxiety Neurological: Reports: No Symptoms Hematologic/Lymphatic: Reports: No Symptoms Immunologic: Reports: No Symptoms Exam - Exam Exam: See Below - Vital Signs Vital Signs: Last Vital Signs Temp 99.5 F 10/20/17 20:00 Pulse 86 10/20/17 20:00 Resp 18 10/20/17 20:00 BP 120/71 10/20/17 20:00 Pulse Ox 95 10/20/17 20:00 Weight: 245 lb - Exam Quality Assessment: Supplemental Oxygen General: Alert, Oriented, Cooperative, Moderate Distress HEENT: Conjunctiva Clear, EOMI, Pupils Reactive. No: Scleral Icterus Neck: Supple, Trachea Midline Lungs: Clear to Auscultation, Normal Respiratory Effort Cardiovascular: Regular Rate, Regular Rhythm. No: Tachycardia GI/Abdominal Exam: Normal Bowel Sounds, Soft, No Distention, Tender (At the surgical site), Abnormal Bowel Sounds (Hypoactive). No: Guarding, Rigid, Rebound (Female) Exam: Deferred Rectal (Female) Exam: Deferred Back Exam: Normal Inspection Extremities: Normal Inspection Peripheral Pulses: 4+: Posterior Tibial (L), Posterior Tibial (R), Dorsalis Pedis (L), Dorsalis Pedis (R) Skin: Warm, Dry, Incision (Moderate erythema around the surgical site primarily inferior to the incision.) Psychiatric: Alert, Normal Affect, Normal Mood - Patient Data Result Diagrams: 10/20/17 17:10 10/20/17 17:10 *Q Meaningful Use (ADM) - VTE *Q VTE Criteria *Q: - Stroke *Q Stroke Criteria *Q: - AMI *Q AMI Criteria *Q: - Problem List (1) Cellulitis of abdominal wall SNOMED Code(s): 80723782 ICD Code: L03.311 - CELLULITIS OF ABDOMINAL WALL Status: Acute Priority: High Current Visit: Yes (2) Postoperative wound infection SNOMED Code(s): 71244500 ICD Code: T81.4XXA - INFECTION FOLLOWING A PROCEDURE, INITIAL ENCOUNTER Status: Acute Priority: High Current Visit: Yes Qualifiers: Encounter type: initial encounter Qualified Code(s): T81.4XXA - Infection following a procedure, initial encounter Problem List Initiated/Reviewed/Updated: Yes Orders Last 24hrs: Active Orders 24 hr Category Date Time Status Antiembolic Devices [RC] PER UNIT ROUTINE Care 10/20/17 20:26 Ordered Pulse Oximetry [RC] INTERMITTENT Care 10/20/17 20:26 Ordered Up ad Ivone [RC] ASDIRECTED Care 10/20/17 20:26 Ordered Vital Signs [RC] PER UNIT ROUTINE Care 10/20/17 20:26 Ordered Clear Liquid Diet [DIET] Diet 10/21/17 Breakfast Ordered BASIC METABOLIC PANEL,BMP [CHEM] AM Lab 10/21/17 05:11 Ordered CBC WITH AUTO DIFF [HEME] AM Lab 10/21/17 05:11 Ordered Acetaminophen [Tylenol] Med 10/20/17 20:27 Ordered 325 mg PO Q4H PRN Acetaminophen/HYDROcodone [[place] 325-5 MG] Med 10/20/17 20:27 Ordered 1 - 2 tab PO Q4H PRN Dextrose 5%-Ringers 1,000 ml Med 10/20/17 20:30 Ordered IV ASDIRECTED Morphine Med 10/20/17 20:27 Ordered See Dose Instructions IVPUSH Q1H PRN ceFAZolin [Ancef] 1 gm Med 10/20/17 20:30 Ordered Premix Bag 1 bag IV Q6H Antiembolic Hose [OM.PC] PER UNIT ROUTINE Oth 10/20/17 06:00 Ordered Antiembolic Hose [OM.PC] PER UNIT ROUTINE Oth 10/21/17 06:00 Ordered Sequential Compression Device [OM.PC] Routine Oth 10/20/17 20:26 Ordered Resuscitation Status Routine Resus Stat 10/20/17 20:26 Ordered Medication Orders Hydromorphone HCl (Dilaudid) 0.5 mg IVPUSH Q1H PRN PRN Reason: Pain Last Admin: 10/20/17 18:01 Dose: 0.5 mg Sodium Chloride (Saline Flush) 10 ml FLUSH ASDIRECTED PRN PRN Reason: Keep Vein Open Sodium Chloride (Saline Flush) 2.5 ml FLUSH ASDIRECTED PRN PRN Reason: Keep Vein Open Assessment/Plan Comment:: Patient is going to be admitted to the hospital on observation status. She was given 1 g of Rocephin in the emergency room. We will switch to Ancef 1 g every 6 hours. She may have a clear liquid diet and Apple juice. She does become hypoglycemic. Pain will be controlled with a combination of parenteral morphine and oral narcotics. Lab work has been ordered for the morning. The amount of erythema has been marked on the skin. Dr. Ybarra will be notified of her admission.
[2017-10-20] MEDS: ceFAZolin 1 GM in Premix Bag 1 BAG IV SCH (20:47)
[2017-10-20] MEDS: Dextrose 5%-Lactated Ringers 1,000 ML IV SCH (21:06)
[2017-10-20] MEDS: Morphine 10 MG/ML Syringe IVPUSH PRN (22:20)
[2017-10-21] MEDS: Morphine 10 MG/ML Syringe IVPUSH PRN ×3 (00:07→05:57)
[2017-10-21] MEDS: ceFAZolin 1 GM in Premix Bag 1 BAG IV SCH ×2 (01:53→07:50)
[2017-10-21] MEDS: Acetaminophen 325 MG Tab PO PRN ×3 (02:30→13:10)
[2017-10-21] MEDS: Acetaminophen/HYDROcodone 325-5 MG Tab PO PRN ×5 (03:42→20:43)
[2017-10-21] MEDS: Ondansetron 4 MG/2 ML SDV IVPUSH PRN (05:54)
[2017-10-21] MEDS: Dextrose 5%-Lactated Ringers 1,000 ML IV SCH ×2 (06:06→16:43)
[2017-10-21 07:58] LABS: CHLORIDE,CL 103 mmol/L (98-110); SODIUM,NA 137 mmol/L (136-146)
--- NOTE | 2017-10-21 10:15 | PCM.PN ---
- General Info Date of Service: 10/21/17 Admission Dx/Problem (Free Text): Admission Diagnosis/Problem Admission Diagnosis/Problem Wound infection following procedure Functional Status: Reports: Pain Controlled, Ambulating - Review of Systems General: Reports: Fever (MAXIMUM TEMPERATURE 100.8), Appetite Pulmonary: Denies: Shortness of Breath, Pleuritic Chest Pain Cardiovascular: Denies: Chest Pain Gastrointestinal: Reports: Abdominal Pain (Incisional), Flatus. Denies: Diarrhea, Difficulty Swallowing, Nausea, Vomiting Genitourinary: Reports: No Symptoms Musculoskeletal: Reports: No Symptoms Skin: Reports: No Symptoms Neurological: Reports: No Symptoms Psychiatric: Reports: No Symptoms - Patient Data Vitals - Most Recent: Last Vital Signs Temp 100.8 F H 10/21/17 08:00 Pulse 98 10/21/17 08:00 Resp 18 10/21/17 08:00 BP 115/67 10/21/17 08:00 Pulse Ox 99 10/21/17 08:00 Weight - Most Recent: 245 lb I&O - Last 24 Hours: Intake & Output 10/20/17 10/21/17 10/21/17 19:59 03:59 11:59 Intake Total 100 150 Output Total 1000 Balance 100 -850 Lab Results Last 24 Hours: Laboratory Results - last 24 hr 10/21/17 10/21/17 Range/Units 07:03 07:03 WBC 9.56 (4.0-11.0) K/uL RBC 4.14 L (4.30-5.90) M/uL Hgb 12.8 (12.0-16.0) g/dL Hct 36.8 (36.0-46.0) % MCV 88.9 (80.0-98.0) fL MCH 30.9 (27.0-32.0) pg MCHC 34.8 (31.0-37.0) g/dL RDW Std Deviation 38.9 (28.0-62.0) fl RDW Coeff of Alex 12 (11.0-15.0) % Plt Count 211 (150-400) K/uL MPV 8.60 (7.40-12.00) fL Neut % (Auto) 74.1 (48.0-80.0) % Lymph % (Auto) 15.1 L (16.0-40.0) % [place] % (Auto) 8.8 (0.0-15.0) % Eos % (Auto) 1.8 (0.0-7.0) % Baso % (Auto) 0.2 (0.0-1.5) % Neut # (Auto) 7.1 H (1.4-5.7) K/uL Lymph # (Auto) 1.4 (0.6-2.4) K/uL [place] # (Auto) 0.8 (0.0-0.8) K/uL Eos # (Auto) 0.2 (0.0-0.7) K/uL Baso # (Auto) 0.0 (0.0-0.1) K/uL Nucleated RBC % 0.0 /100WBC Nucleated RBCs # 0 K/uL Sodium 137 (136-146) mmol/L Potassium 3.9 (3.5-5.1) mmol/L Chloride 103 (98-110) mmol/L Carbon Dioxide 23 (21-31) mmol/L BUN 10 (6.0-23.0) mg/dL Creatinine 0.8 (0.6-1.5) mg/dL Est Cr Clr Drug Dosing 95.91 mL/min Estimated GFR (MDRD) > 60.0 ml/min Glucose 135 H (60-110) mg/dL Calcium 8.9 (8.8-10.8) mg/dL Med Orders - Current: Current Medications Acetaminophen (Tylenol) 325 mg PO Q4H PRN PRN Reason: Fever Greater Than 101 Last Admin: 10/21/17 08:46 Dose: 325 mg Hydrocodone Bitart/Acetaminophen ([place] 325-5 Mg) 1 - 2 tab PO Q4H PRN PRN Reason: Pain (moderate 4-6) Last Admin: 10/21/17 09:14 Dose: 1 tab Dextrose/Lactated Ringer's (Dextrose 5%-Lactated Ringers) 1,000 mls @ 125 mls/ hr IV ASDIRECTED PAT Last Admin: 10/21/17 06:06 Dose: 125 mls/hr Morphine Sulfate (Morphine) 0 mg IVPUSH Q1H PRN PRN Reason: Pain (severe 7-10) Last Admin: 10/21/17 05:57 Dose: 5 mg Ondansetron HCl (Zofran) 4 mg IVPUSH Q4H PRN PRN Reason: Nausea/Vomiting Last Admin: 10/21/17 05:54 Dose: 4 mg Sodium Chloride (Saline Flush) 10 ml FLUSH ASDIRECTED PRN PRN Reason: Keep Vein Open Sodium Chloride (Saline Flush) 2.5 ml FLUSH ASDIRECTED PRN PRN Reason: Keep Vein Open Vancomycin HCl (Pharmacy To Dose - Vancomycin) 1 dose .XX ASDIRECTED PAT Discontinued Medications Hydromorphone HCl (Dilaudid) 0.5 mg IVPUSH Q1H PRN PRN Reason: Pain Last Admin: 10/20/17 20:46 Dose: 0.5 mg Sodium Chloride (Normal Saline) 500 mls @ 999 mls/hr IV .Bolus ONE Stop: 10/20/17 17:47 Last Infusion: 10/20/17 18:41 Dose: 125 mls/hr Ceftriaxone Sodium/Dextrose 1 (gm/ Premix) 50 mls @ 100 mls/hr IV ONETIME ONE Stop: 10/20/17 18:06 Last Admin: 10/20/17 18:41 Dose: 100 mls/hr Cefazolin Sodium/Dextrose 1 gm (/ Premix) 50 mls @ 100 mls/hr IV Q6H [facility] Last Admin: 10/21/17 07:50 Dose: 100 mls/hr Iopamidol (Isovue-370 (76%)) 100 ml IVPUSH ONETIME STA Stop: 10/20/17 18:25 Last Admin: 10/20/17 18:32 Dose: 100 ml Ondansetron HCl (Zofran) 4 mg IVPUSH ONETIME ONE Stop: 10/20/17 17:02 Last Admin: 10/20/17 18:00 Dose: 4 mg - Exam General: Alert, Oriented, Cooperative, Mild Distress HEENT: Pupils Equal, Pupils Reactive Neck: Supple Lungs: Clear to Auscultation, Normal Respiratory Effort Cardiovascular: Regular Rate, Regular Rhythm GI/Abdominal Exam: Normal Bowel Sounds, Soft, No Distention, Tender (Incisional tenderness.), Other (Has developed drainage from her incision.). No: Guarding, Rigid, Rebound (Female) Exam: Normal External Exam Back Exam: Normal Inspection Extremities: Normal Inspection Skin: Warm, Dry, Intact Wound/Incisions: Drainage, Erythema Improving Psy/Mental Status: Alert - Problem List & Annotations (1) Cellulitis of abdominal wall SNOMED Code(s): 62747961 Code(s): L03.311 - CELLULITIS OF ABDOMINAL WALL Status: Acute Priority: High Current Visit: Yes (2) Postoperative wound infection SNOMED Code(s): 70036148 Code(s): T81.4XXA - INFECTION FOLLOWING A PROCEDURE, INITIAL ENCOUNTER Status: Acute Priority: High Current Visit: Yes Qualifiers: Encounter type: initial encounter Qualified Code(s): T81.4XXA - Infection following a procedure, initial encounter - Problem List Review Problem List Initiated/Reviewed/Updated: Yes - My Orders Last 24 Hours: My Active Orders 10/20/17 20:26 Antiembolic Devices [RC] PER UNIT ROUTINE Pulse Oximetry [RC] INTERMITTENT Up ad Ivone [RC] ASDIRECTED Vital Signs [RC] Q4H Sequential Compression Device [OM.PC] Routine Resuscitation Status Routine 10/20/17 20:27 Acetaminophen [Tylenol] 325 mg PO Q4H PRN Acetaminophen/HYDROcodone [[place] 325-5 MG] 1 - 2 tab PO Q4H PRN Morphine See Dose Instructions IVPUSH Q1H PRN 10/20/17 20:58 Ondansetron [Zofran] 4 mg IVPUSH Q4H PRN 10/20/17 21:15 Dextrose 5%-Lactated Ringers 1,000 ml IV ASDIRECTED 10/21/17 06:00 Antiembolic Hose [OM.PC] PER UNIT ROUTINE 10/21/17 10:15 Vancomycin Pharmacy to Dose [Pharmacy to Dose - Vancomycin] 1 dose .XX ASDIRECTED 10/21/17 Breakfast Clear Liquid Diet [DIET] 10/21/17 Dinner Nothing Per Oral Diet [DIET] 10/21/17 Lunch Soft Diet [DIET] - Assessment Assessment:: Patient has developed spontaneous drainage. Preliminary culture results are not yet available. - Plan Plan:: Patient is feeling a little bit better, although has now developed spontaneous drainage. In discussion with pharmacy there is a high possibility that this is a methicillin-resistant staph. We'll switch to vancomycin with pharmacy dosing and discontinue the cefazolin. Will notify Dr. Ybarra of patient's admission. She may still require intraoperative drainage. I do note that her white count is stable and there is no significant left shift. Will allow soft diet today and NPO after midnight.
[2017-10-22] MEDS: Acetaminophen/HYDROcodone 325-5 MG Tab PO PRN ×2 (03:41→10:11)
[2017-10-22] MEDS: Dextrose 5%-Lactated Ringers 1,000 ML IV SCH (03:44)
[2017-10-22] MEDS ORDERED: Scopolamine 1.5 MG Transdermal Patch TRDERM PRN (09:29)
[2017-10-22] MEDS ORDERED: Lactated Ringers 1,000 ML IV SCH ×2 (10:15→14:00)
--- NOTE | 2017-10-22 10:15 | PCM.SN ---
- Free Text/Narrative Note: pt seen, chart reviewed; wound infection, to or for i/d, risks and benefits dw pt re bleeding, more infection, and postop course, pt concurs and proceed.
--- NOTE | 2017-10-22 10:17 | PCM.PREANE ---
Preanesthetic Assessment - Anesthesia/Transfusion/Family Hx Anesthesia History: Prior Anesthesia Without Reaction Other Type of Anesthesia Reaction Comment: No prior anethesia, positive for Motion sickness, Denies any known fmly=prb Transfusion History: No Prior Transfusion(s) Intubation History: Unknown - Review of Systems General: Fever, Fatigue, Malaise, Chills, Other (started 2 days postop) Pulmonary: No Symptoms Cardiovascular: No Symptoms Gastrointestinal: Nausea Neurological: No Symptoms Other: Reports: None - Physical Assessment NPO Status Date: 10/22/17 NPO Status Time: 00:00 O2 Sat by Pulse Oximetry: 91 Respiratory Rate: 20 Vital Signs: Last Vital Signs Temp 98.8 F 10/22/17 07:54 Pulse 64 10/22/17 07:54 Resp 20 10/22/17 07:54 BP 105/70 10/22/17 07:54 Pulse Ox 91 L 10/22/17 07:54 Height: 5 ft 6.14 in Weight: 245 lb ASA Class: 2E Mental Status: Alert & Oriented x3 Airway Class: Mallampati = 2 Dentition: Reports: Normal Dentition (lip piercing that pt will remove prior to surgery) ROM/Head Extension: Full Lungs: Clear to Auscultation, Normal Respiratory Effort Cardiovascular: Regular Rate, Regular Rhythm - Lab Values: Laboratory Last Values WBC 9.56 K/uL (4.0-11.0) 10/21/17 07:03 RBC 4.14 M/uL (4.30-5.90) L 10/21/17 07:03 Hgb 12.8 g/dL (12.0-16.0) 10/21/17 07:03 Hct 36.8 % (36.0-46.0) 10/21/17 07:03 MCV 88.9 fL (80.0-98.0) 10/21/17 07:03 MCH 30.9 pg (27.0-32.0) 10/21/17 07:03 MCHC 34.8 g/dL (31.0-37.0) 10/21/17 07:03 RDW Std Deviation 38.9 fl (28.0-62.0) 10/21/17 07:03 RDW Coeff of Alex 12 % (11.0-15.0) 10/21/17 07:03 Plt Count 211 K/uL (150-400) 10/21/17 07:03 MPV 8.60 fL (7.40-12.00) 10/21/17 07:03 Neut % (Auto) 74.1 % (48.0-80.0) 10/21/17 07:03 Lymph % (Auto) 15.1 % (16.0-40.0) L 10/21/17 07:03 [place] % (Auto) 8.8 % (0.0-15.0) 10/21/17 07:03 Eos % (Auto) 1.8 % (0.0-7.0) 10/21/17 07:03 Baso % (Auto) 0.2 % (0.0-1.5) 10/21/17 07:03 Neut # (Auto) 7.1 K/uL (1.4-5.7) H 10/21/17 07:03 Lymph # (Auto) 1.4 K/uL (0.6-2.4) 10/21/17 07:03 [place] # (Auto) 0.8 K/uL (0.0-0.8) 10/21/17 07:03 Eos # (Auto) 0.2 K/uL (0.0-0.7) 10/21/17 07:03 Baso # (Auto) 0.0 K/uL (0.0-0.1) 10/21/17 07:03 Nucleated RBC % 0.0 /100WBC 10/21/17 07:03 Nucleated RBCs # 0 K/uL 10/21/17 07:03 Lactate 0.9 mmol/L (0.20-2.00) 10/20/17 17:18 Sodium 137 mmol/L (136-146) 10/21/17 07:03 Potassium 3.9 mmol/L (3.5-5.1) 10/21/17 07:03 Chloride 103 mmol/L (98-110) 10/21/17 07:03 Carbon Dioxide 23 mmol/L (21-31) 10/21/17 07:03 BUN 10 mg/dL (6.0-23.0) 10/21/17 07:03 Creatinine 0.8 mg/dL (0.6-1.5) 10/21/17 07:03 Est Cr Clr Drug Dosing 95.91 mL/min 10/21/17 07:03 Estimated GFR (MDRD) > 60.0 ml/min 10/21/17 07:03 Glucose 135 mg/dL (60-110) H 10/21/17 07:03 Calcium 8.9 mg/dL (8.8-10.8) 10/21/17 07:03 Total Bilirubin 0.6 mg/dL (0.1-1.5) 10/20/17 17:10 AST 26 IU/L (5-40) 10/20/17 17:10 ALT 45 IU/L (8-54) 10/20/17 17:10 Alkaline Phosphatase 76 (40-150) 10/20/17 17:10 Total Protein 7.5 g/dL (6.0-8.0) 10/20/17 17:10 Albumin 4.1 g/dL (3.5-5.0) 10/20/17 17:10 Globulin 3.4 g/dL (2.0-3.5) 10/20/17 17:10 Albumin/Globulin Ratio 1.2 (1.3-2.8) L 10/20/17 17:10 Urine HCG, Qual NEGATIVE (NEGATIVE) 10/22/17 09:45 - Allergies Allergies/Adverse Reactions: Allergies Allergy/AdvReac Type Severity Reaction Status Date / Time No Known Allergies Allergy Verified 10/20/17 17:00 - Blood Blood Available: No Product(s) Available: None - Anesthesia Plan Free Text/Narrative:: GETA vs LMA Scop Patch for hx of nausea/motion sickness Pt is still , will forego versed preop - Acknowledgements Anesthesia Type Planned: General Anesthesia Pt an Appropriate Candidate for the Planned Anesthesia: Yes Alternatives and Risks of Anesthesia Discussed w Pt/Guardian: Yes Pt/Guardian Understands and Agrees with Anesthesia Plan: Yes PreAnesthesia Questionnaire - Past Health History Medical/Surgical History: Denies Medical/Surgical History Gastrointestinal History: Reports: None Other Gastrointestinal History: biliary dyskinesia Genitourinary History: Reports: None 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: , 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) Musculoskeletal History: Reports: None Psychiatric History: Reports: Anxiety Endocrine/Metabolic History: Reports: Obesity/BMI 30+ Hematologic History: Reports: None Immunologic History: Reports: None Oncologic (Cancer) History: Reports: None Dermatologic History: Reports: None - Past Surgical History Head Surgeries/Procedures: Reports: None HEENT Surgical History: Reports: Oral Surgery Other HEENT Surgeries/Procedures: wisdom teeth removed GI Surgical History: Reports: Cholecystectomy, Hernia, Abdominal Musculoskeletal Surgical History: Reports: 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) Other Musculoskeletal Surgeries/Procedures:: Right patella tendon tear - SUBSTANCE USE Smoking Status *Q: Former Smoker Tobacco Use Within Last Twelve Months: No Second Hand Smoke Exposure: No Days Per Week of Alcohol Use: 2 Number of Drinks Per Day: 2 Total Drinks Per Week: 4 Recreational Drug Use History: No Recreational Drug Type: Reports: Marijuana/Hashish - HOME MEDS Home Medications: Home Meds Cholecalciferol (Vitamin D3) [Vitamin D3] 10,000 unit PO DAILY 04/19/15 [History ] Vitamin B Complex 1 tab PO DAILY 04/19/15 [History] Bromelains 500 mg PO DAILY 10/11/17 [History] Lactobacillus Acidophilus [Probiotic] 1 tab PO DAILY 10/11/17 [History] Magnesium Citrate 1 tab PO ASDIRECTED 10/11/17 [History] PNV95/Ferrous Fumarate/FA [ Vitamins Tablet] 1 tab PO DAILY 10/11/17 [ History] hydrOXYzine HCl [Atarax] 1 - 2 tab PO ASDIRECTED PRN 10/11/17 [History] Acetaminophen/HYDROcodone [[place] 325-5 MG] 1 tab PO Q3H 10/20/17 [History] Cephalexin [Keflex] 500 mg PO Q6HR #40 cap 10/20/17 [Rx] Fenugreek Seed/Bl.thistle/Anis [Milkflow Capsule] 340 mg PO DAILY 10/20/17 [ History] - CURRENT (IN HOUSE) MEDS Current Meds: Current Medications Acetaminophen (Tylenol) 325 mg PO Q4H PRN PRN Reason: Fever Greater Than 101 Last Admin: 10/21/17 13:10 Dose: 325 mg Hydrocodone Bitart/Acetaminophen ([place] 325-5 Mg) 1 - 2 tab PO Q4H PRN PRN Reason: Pain (moderate 4-6) Last Admin: 10/22/17 10:11 Dose: 1 tab Dextrose/Lactated Ringer's (Dextrose 5%-Lactated Ringers) 1,000 mls @ 125 mls/ hr IV ASDIRECTED PAT Last Admin: 10/22/17 03:44 Dose: 125 mls/hr Vancomycin HCl 1,500 mg/ (Sodium Chloride) 500 mls @ 250 mls/hr IV Q8H PAT Last Admin: 10/22/17 03:47 Dose: 250 mls/hr Lactated Ringer's (Ringers, Lactated) 1,000 mls @ 125 mls/hr IV ASDIRECTED [facility] Morphine Sulfate (Morphine) 0 mg IVPUSH Q1H PRN PRN Reason: Pain (severe 7-10) Last Admin: 10/21/17 05:57 Dose: 5 mg Ondansetron HCl (Zofran) 4 mg IVPUSH Q4H PRN PRN Reason: Nausea/Vomiting Last Admin: 10/21/17 05:54 Dose: 4 mg Scopolamine (Transderm-Scop) 1.5 mg TRDERM .ONCE PRN PRN Reason: Post Op Nausea Sodium Chloride (Saline Flush) 10 ml FLUSH ASDIRECTED PRN PRN Reason: Keep Vein Open Sodium Chloride (Saline Flush) 2.5 ml FLUSH ASDIRECTED PRN PRN Reason: Keep Vein Open Vancomycin HCl (Pharmacy To Dose - Vancomycin) 1 dose .XX ASDIRECTED [facility] Discontinued Medications Hydromorphone HCl (Dilaudid) 0.5 mg IVPUSH Q1H PRN PRN Reason: Pain Last Admin: 10/20/17 20:46 Dose: 0.5 mg Sodium Chloride (Normal Saline) 500 mls @ 999 mls/hr IV .Bolus ONE Stop: 10/20/17 17:47 Last Infusion: 10/20/17 18:41 Dose: 125 mls/hr Ceftriaxone Sodium/Dextrose 1 (gm/ Premix) 50 mls @ 100 mls/hr IV ONETIME ONE Stop: 10/20/17 18:06 Last Admin: 10/20/17 18:41 Dose: 100 mls/hr Cefazolin Sodium/Dextrose 1 gm (/ Premix) 50 mls @ 100 mls/hr IV Q6H [facility] Last Admin: 10/21/17 07:50 Dose: 100 mls/hr Iopamidol (Isovue-370 (76%)) 100 ml IVPUSH ONETIME STA Stop: 10/20/17 18:25 Last Admin: 10/20/17 18:32 Dose: 100 ml Ondansetron HCl (Zofran) 4 mg IVPUSH ONETIME ONE Stop: 10/20/17 17:02 Last Admin: 10/20/17 18:00 Dose: 4 mg
[2017-10-22] MEDS ORDERED: Lidocaine 2% 5 ML SDV ONE (11:29)
[2017-10-22] MEDS ORDERED: Rocuronium 10 MG/ML 10 ML Syringe ONE (11:29)
[2017-10-22] MEDS ORDERED: Propofol 200 MG/20 ML SDV ONE (11:29)
[2017-10-22] MEDS ORDERED: Succinylcholine/Normal Saline 200 MG/10 ML Syringe ONE (11:29)
[2017-10-22] MEDS ORDERED: Ondansetron 4 MG/2 ML SDV ONE (11:29)
[2017-10-22] MEDS ORDERED: fentaNYL 250 MCG/5 ML SDV ONE (11:29)
[2017-10-22] MEDS ORDERED: Midazolam 1 MG/ML 2 ML SDV ONE (11:29)
[2017-10-22] MEDS ORDERED: Bupivacaine 25%/EPINEPHrine/PF 30 ML ONE (12:13)
[2017-10-22] MEDS ORDERED: Dexamethasone 4 MG/ML 5 ML MDV ONE (12:48)
[2017-10-22] MEDS ORDERED: fentaNYL 100 MCG/2 ML SDV IVPUSH PRN (13:38)
--- NOTE | 2017-10-22 13:58 | PCM.OPNOTE ---
- General Post-Op/Procedure Note Findings: wound exploration, only serous sanguinous dark old clear fluid, drained out; g/c /s obtained, wound was packed; [id number] Pre Op Diagnosis: wound drainage Post-Op Diagnosis: Same Anesthesia Technique: General ET Tube Primary Surgeon: Jona Ybarra Complications: None Condition: Fair Free Text/Narrative:: Intake & Output 10/21/17 10/22/17 10/22/17 22:59 06:59 14:59 Intake Total 2165 3000 Output Total 2951 2336 Balance -418 -413
[2017-10-22] MEDS ORDERED: Acetaminophen/oxyCODONE 325-5 MG Tab PO PRN (13:59)
[2017-10-22] MEDS ORDERED: Ondansetron 4 MG/2 ML SDV IVPUSH PRN (13:59)
--- NOTE | 2017-10-22 14:44 | HP ---
DATE OF : 1985 PRIMARY CARE PHYSICIAN: None PCP HISTORY OF PRESENT ILLNESS: The patient is a 31-year-old lady, who is status post umbilical hernia repair without mesh 6 days ago and noted to have increasing abdominal pain and wound drainage. On day #5 after surgery seen in emergency room and admitted for IV antibiotic and observation and overnight started to have purulent drainage and foul smelling, and white count also increased and note of infection and this is now for further management. ALLERGIES: Please refer to nursing for details. MEDICATIONS: Please refer to nursing for details. PAST MEDICAL HISTORY: Same as the last admission. PAST SURGICAL HISTORY: Same as the last admission. PHYSICAL EXAMINATION: GENERAL: A very pleasant, nice patient in no acute distress. HEENT: Normocephalic and atraumatic. Sclerae anicteric. LUNGS: Clear to auscultation. HEART: Regular rate and rhythm. ABDOMEN: Soft. Tender in the umbilical wound with minimal express purulent material and the marking erythema on the skin has dramatically decreased after having 24 hours of IV vancomycin. Pain has remained the same. Admission CAT scan shows bubble with collection consistent with infection and abscess. ASSESSMENT AND PLAN: Postoperative day #5 with abscess from umbilical surgical procedure, would benefit from return to operating room for incision and drainage and pack the wound. Risks and benefits were discussed with the patient including bleeding, infection, and postop course and pain management. The patient concurred to proceed as planned. As always, thank you for the kind referral. SEN HAYES /[id number]
[2017-10-22] MEDS: Ondansetron 4 MG/2 ML SDV IVPUSH PRN (14:59)
--- NOTE | 2017-10-22 15:24 | PCM.POSTAN ---
POST ANESTHESIA ASSESSMENT - MENTAL STATUS Mental Status: Alert, Oriented - RESPIRATORY Respiratory Status: Respiratory Rate WNL, Airway Patent, O2 Saturation Stable - CARDIOVASCULAR CV Status: Pulse Rate WNL, Blood Pressure Stable - GASTROINTESTINAL GI Status: No Symptoms - PAIN Pain Score: 0 - POST OP HYDRATION Hydration Status: Adequate & Stable
--- NOTE | 2017-10-22 16:02 | CT ---
EXAM DATE: 10/20/17 PATIENT'S AGE: 31 Patient: FORD POWELL Facility: [place], [place] Site . Site : 1985 Study: CT Abdomen/Pelvis [id number]/[id number]/2017 6:45:02 PM Ordering Physician: Issac Will Final Report: INDICATION: Recent umbilical hernia repair. Now with pus draining from surgical site. TECHNIQUE: Contiguous axial images were acquired through the abdomen and pelvis after the intravenous administration of contrast. Sagittal and coronal reconstructions. COMPARISON: None. FINDINGS: Visualized lower chest: Heart size is normal. No pericardial effusion. Mild bibasilar atelectasis. Abdomen and pelvis: The liver, spleen, pancreas, adrenal glands and kidneys are essentially unremarkable. Cholecystectomy. Mild intrahepatic and extrahepatic bile duct dilatation is likely related to reservoir effect. Normal caliber abdominal aorta. No abnormally dilated small or large bowel. No abnormal bowel wall thickening. Mild sigmoid diverticulosis. Unremarkable urinary bladder. Uterus is present. Ovaries are age appropriate in appearance. There are postsurgical changes consistent with a recent umbilical hernia repair. There is a small amount of fat stranding in the intraperitoneal space, just deep to the abdominal wall, but no discrete fluid collection or air is seen in this region. Along the anterior margin of the abdominal wall (myofascia layers), there is fat stranding with a small amount of localized fluid seen surrounding the umbilicus. This measures approximately 3.9 cm in transverse dimension, and 4 cm in craniocaudal dimension. Small foci of air seen in this region. Bones: No acute bony abnormality or suspicious bony lesions. Multilevel disc degeneration is seen in the lower thoracic spine with a chronic/calcified posterior disc bulge noted at the T10-11 level. IMPRESSION: 1. There are postsurgical change consistent with a recent umbilical hernia repair. Ill-defined subcutaneous, periumbilical fluid collection containing a small amount of air likely represents a developing abscess. No intra-abdominal extension. 2. Incidental findings as noted. Dictated by Jeremy Nguyen MD @ 10/20/2017 7:16:25 PM Dictated by: Jeremy Nguyen MD @ 10/20/2017 19:17:48 (Electronic Signature) Report Signed by Proxy. [facility] HOSPITALAlfonso
--- NOTE | 2017-10-22 18:39 | PCM48HPAN ---
Post Anesthesia Note - EVALUATION WITHIN 48HRS OF ANESTHETIC Vital Signs in Normal Range: Yes Patient Participated in Evaluation: Yes Respiratory Function Stable: Yes Airway Patent: Yes Cardiovascular Function Stable: Yes Hydration Status Stable: Yes Pain Control Satisfactory: Yes Nausea and Vomiting Control Satisfactory: Yes Mental Status Recovered: Yes - COMMENTS/OBSERVATIONS Free Text/Narrative:: Pt in wheelchair ready to go home. Scopalamine patch still in place and pt reports slight nausea, but not enough to stay in the hospital. No apparent anesthesia complications.
[2017-10-22 20:03] VITALS: BP 124/83
--- NOTE | 2017-10-23 08:54 | OR ---
SURGEON: Jona Ybarra MD DATE OF PROCEDURE: 10/22/2017 PREOPERATIVE DIAGNOSIS: Umbilical wound drainage. POSTOPERATIVE DIAGNOSIS: Umbilical wound drainage. PROCEDURE PERFORMED: Incision and drainage of the umbilical wound. COMPLICATIONS: None. FINDINGS: Some serosanguineous drainage and absolutely no signs or symptoms of pus at this stage. Wound was opened up, explored, and packed. Culture sent. PROCEDURE IN DETAIL: The patient was taken to the operating room and placed in a supine position. Upon induction of general endotracheal anesthesia, the region of the umbilical wound prepped and draped in a sterile fashion. Time-out has been called. The patient was identified, procedure was identified, antibiotic was given around- the-clock, on vancomycin, so patient does not need any antibiotic in the operating room. The patient identified, procedure was started, and the patient was prepped and draped in a sterile fashion. Basically, just using a Q-tip in order to get Gram-stain and C and S, and the wound opened up a little bit at the 10 o'clock area from the umbilicus, and about 1 cm opened up and gushing out some dusky colored old blood. There was not even a thick consistency to consider this pus, and the wound was irrigated to clear, and the wound was packed with quarter-inch plain gauze and appropriate dressing. The patient was awakened, extubated, and transferred to the recovery room in hemodynamically stable condition. The patient tolerated the procedure well. There were no intraoperative complications. Dr. Ybarra was present through the whole procedure. As always, thank you for the kind referral. SEN / ABIGAIL /[id number]
--- NOTE | 2017-10-23 10:05 | PCM.SN ---
- Free Text/Narrative Note: dc summary done [id number]
--- NOTE | 2017-10-23 10:33 | DISCH ---
DATE OF DISCHARGE: 10/22/2017 PRIMARY CARE PHYSICIAN: [place] PCP DIAGNOSIS: Wound drainage at the umbilicus. HISTORY OF PRESENT ILLNESS: Please refer to Dr. Hinojosa's admission history and physical. In summary, the patient noticed wound drainage, seek help in the emergency room, and was admitted for further management. HOSPITAL COURSE: The patient was admitted through the emergency room after CT scan shows bubble and a 4 x 4 cm collection under the umbilical site, and the patient was put on vancomycin. After the vancomycin finished doing its work, then I myself took the patient to operating room and the patient is status post incision and drainage of umbilical site. Intraoperative findings, there was moderate amount of clear serosanguineous fluid and Gram stain C and S was sent and the wound was then packed. Postop, the patient returned to the room and the patient has been doing fine, tolerating oral diet, and pain is in good control and able to void and ambulate by herself. The patient was discharged. The patient was discharged with script of antibiotic and a script for yeast infection per the patient request and the pain medication. The patient also has a followup appointment with me. The drainage fluid was sent for Gram stain and culture. The initial one from the emergency room was no organism growth. SEN / ABIGAIL /[id number]
== END 2017-10-22 17:50 | disposition home or self-care (01) | DRG 364 ==
LOC: MW.ED 16:22 → OBSVTOIN 19:34 → MW.MS 19:34
PROVIDERS: ADMIT Surgery; ATTEND Surgery
PROC: 0J980ZZ Drainage of Abdomen Subcutaneous Tissue and Fascia, Open Approach (ICD-10-PCS; principal; 2017-10-22)
DX: L03.311 Cellulitis of abdominal wall (principal); T81.4XXA Infection following a procedure, initial encounter; F41.9 Anxiety disorder, unspecified; Z79.899 Other long term (current) drug therapy; Z87.891 Personal history of nicotine dependence
CPT/HCPCS: 00400; 36415; 74177; 74177-26; 80048; 80053; 80202; 81025; 83605; 85025; 87040; 87070; 87075; 87077; 87205; 96361; 96365; 96366; 96375; 96376; 99283; 99285-25; A9270-GY; G0378; J0690; J0696; J1100; J1170; J2250; J2270; J2405; J2704; J3010; J3370; J7040; J7042; J7120; Q9967